=== PATIENT | male | born 1960 | race Caucasian/White ===

== ENCOUNTER → 2018-09-14 | Outpatient (CLI) | payer OTHER ==
[~2018-09-14] MED LIST: GADOBUTROL 10 ML VIAL IVP ONE
== END ==
LOC: FIMAGING 07:48
PROVIDERS: ATTEND Specialist
DX: R97.20 Elevated prostate specific antigen [PSA] (principal); N40.2 Nodular prostate without lower urinary tract symptoms
CPT/HCPCS: A9585

== ENCOUNTER 2019-01-07 07:38 | Inpatient (IN) | payer OTHER ==
--- NOTE | 2019-01-06 17:28 | GHP ---
[f rep st] PREOP HISTORY AND PHYSICAL ADMISSION DIAGNOSIS: Prostate cancer. HISTORY OF PRESENT ILLNESS: This is a 59-year-old gentleman who has had a diagnosis of prostate cancer made on 11/26/2018, had a Vesta score 9 prostate cancer. He had a PI-RADS 4 on MRI and a PSA with a 6.6 value and decipher on the specimen was evaluated. His prostate by ultrasound at the time of the biopsy revealed a prostate volume of 16.9 cubic centimeters, PSA density of 0.39. On review of the ultrasound, he had an abnormality noted in the anterior part of the prostate. He had an MRI of the prostate after the biopsy and the MRI revealed an abnormality in the left mid aspect of the prostate and in the right apical part of the prostate. The MRI report said that he had a PI-RAD 4 high red 4 area, 2 moderately suspicious nodules in the right peripheral zone involving the mid gland and apex. No evidence of extraprostatic extension, lymphadenopathy or bony lesions noted. He had a 3rd lesion in the left mid peripheral zone which has suggestion of focal prostatitis. Then on the MRI, he had a prostate volume of 30 g. He is aware of the options of therapy and I have outlined that he most likely will need to undergo surgery followed with adjuvant radiation with possible androgen deprivation therapy. He is well- informed. He has counseled with Radiologic Oncology, and who seems to be supportive of that plan. PAST MEDICAL HISTORY: Diverticulitis, elevated PSA, and prostate cancer. PAST SURGICAL HISTORY: Transrectal ultrasound with biopsy, sigmoid colon surgery for diverticulitis. MEDICATIONS: Levaquin in the past, One-A-Day multivitamin (male), tamsulosin and vitamin D. ALLERGIES: None. FAMILY HISTORY: Noncontributory. SOCIAL HISTORY: He has bcyr-er-gdtloqdl alcohol consumption. Former smoker. REVIEW OF SYSTEMS: Negative cardiac, respiratory, GI and endocrine. PHYSICAL EXAMINATION: VITAL SIGNS: Stable. CHEST: Clear. HEART: Regular rate and rhythm. ABDOMEN: Normal. No organomegaly, rebound or guarding. EXTREMITIES: Lower extremities are normal. : Prostate has consistency of hardness. ASSESSMENT AND PLAN: At the present time, he is admitted for a radical prostatectomy and bilateral pelvic lymphadenectomy robotically. It should be said he has had previous diverticulitis with partial colectomy and we have outlined that this may be somewhat complicating in trying to do the robotic procedure and if such we would convert to an open procedure. He appears to be well informed and was admitted for the above procedure. /[id number]/MODL MTDD
[2019-01-07] MEDS ORDERED: ceFAZolin 2 GM/DEXTROSE 100 ML IV ONE (07:39)
--- NOTE | 2019-01-07 07:40 | PDHPUP ---
History & Physical Update H&P update statement: This history and physical update is based on an assessment of the patient which was completed after admission or registration (within 24 hours), but prior to the surgery/procedure. H&P update: H&P reviewed & patient examined, no change in patient's condition since H&P completed
[2019-01-07] MEDS ORDERED: LIDOCAINE 1% 2 ML INJ ID PRN (07:50)
[2019-01-07] MEDS ORDERED: LR 1,000 ML IV ONE (07:50)
[2019-01-07] MEDS ORDERED: BUPIVACAINE 0.5% 30 ML SDV ONE (09:29)
[2019-01-07] MEDS ORDERED: MIDAZOLAM 2 MG/2 ML VIAL IVP ONE (10:07)
--- NOTE | 2019-01-07 10:07 | PDANEPAE ---
ANE History of Present Illness here for robotic radical prostate with LN ANE Past Medical History - Cardiovascular History Hx Hypertension: No Hx Arrhythmias: No Hx Chest Pain: No Hx Coronary Artery / Peripheral Vascular Disease: No Hx CHF / Valvular Disease: No Hx Palpitations: No - Pulmonary History Hx COPD: No Hx Asthma/Reactive Airway Disease: No Hx Recent Upper Respiratory Infection: No Hx Oxygen in Use at Home: No Hx Sleep Apnea: No Sleep Apnea Screening Result - Last Documented: Negative - Neurologic History Hx Cerebrovascular Accident: No Hx Seizures: No Hx Dementia: No - Endocrine History Hx Diabetes: No - Renal History Hx Renal Disorders: No - Liver History Hx Hepatic Disorders: No - Neurological & Psychiatric Hx Hx Neurological and Psychiatric Disorders: No - Cancer History Hx Cancer: Yes Cancer History Comment: new dx - Congenital Disorder History Hx Congenital Disorders: No - GI History Hx Gastrointestinal Disorders: Yes Gastrointestinal History Comment: diverticulitis - Other Health History Other Health History: none - Chronic Pain History Chronic Pain: No - Surgical History Prior Surgeries: none in last 5 yrs. partial colectomy 10yrs ago ANE Review of Systems Review of systems is: negative Review of Systems: - Exercise capacity Exercise capacity: >=4 METS METS (RN): 4 METS ANE Patient History - Allergies Allergies/Adverse Reactions: No Known Allergies Allergy (Verified 01/07/19 07:53) - Home Medications Home medications: home medication list seen and reviewed Home Medications: Cholecalciferol Vit D3 [Vitamin D3 (*)] 5,000 units PO DAILY 12/23/18 [Last Taken 12/28/18] Herbals/Supplements -Info Only 1 ea PO DAILY 12/23/18 [Last Taken 12/28/18] Multivitamins [Multivitamin (*)] 1 each PO DAILY 12/23/18 [Last Taken 12/28/18] Altus-3 Fatty Acids [Fish Oil 1000 mg (*)] 1,000 mg PO DAILY 12/23/18 [Last Taken 12/28/18] Tamsulosin HCl [Flomax 0.4 MG (*)] 0.4 mg PO DAILY 12/23/18 [Last Taken 01/06/19 ] - NPO status NPO Status: no food or drink >8 hours NPO Since - Liquids (Date): 01/06/19 NPO Since - Liquids (Time): 22:00 NPO Since - Solids (Date): 01/06/19 NPO Since - Solids (Time): 17:00 - Smoking Hx Smoking Status: Former smoker - Family Anes Hx Family Hx Anesthesia Complications: none ANE Labs/Vital Signs - Vital Signs Vital Signs: reviewed preoperatively; see RN documention for details Blood Pressure: 133/81 Heart Rate: 88 Respiratory Rate: 16 O2 Sat (%): 97 Height: 171.45 cm Weight: 78.471 kg ANE Physical Exam - Airway Neck exam: FROM Mallampati Score: Class 1 Mouth exam: normal dental/mouth exam - Pulmonary Pulmonary: no respiratory distress - Cardiovascular Cardiovascular: regular rate and rhythym - ASA Status ASA Status: II ANE Anesthesia Plan Anesthesia Plan: general endotracheal anesthesia
[2019-01-07] MEDS ORDERED: MIDAZOLAM 2 MG/2 ML VIAL ONE (10:09)
[2019-01-07] MEDS ORDERED: fentaNYL 250 MCG/5 ML INJ ONE (10:10)
[2019-01-07] MEDS ORDERED: PROPOFOL/EMULSION 500 MG/50 ML BOTTLE IV ONE (10:11)
[2019-01-07] MEDS ORDERED: ROCURONIUM 100 MG/10 ML VIAL ONE (10:11)
[2019-01-07] MEDS ORDERED: DEXAMETHASONE 4 MG/ML VIAL IVP PRN (11:02)
[2019-01-07] MEDS ORDERED: LR 500 ML IV PRN (11:02)
[2019-01-07] MEDS ORDERED: NS 500 ML IV PRN (11:02)
[2019-01-07] MEDS ORDERED: ONDANSETRON 4 MG/2 ML VIAL IVP PRN ×2 (11:02→13:10)
[2019-01-07] MEDS ORDERED: ALBUTEROL 3 ML DEYVIAL IH PRN (11:02)
[2019-01-07] MEDS ORDERED: NALOXONE HCL 0.4 MG/ML INJ IVP PRN ×2 (11:02→13:10)
[2019-01-07] MEDS ORDERED: PROMETHAZINE HCL 25 MG/ML INJ IVP PRN (11:02)
[2019-01-07] MEDS ORDERED: THROMBIN(HUM PLAS)/FIBRINOG/CA 5 ML VIAL TP ONE (12:15)
[2019-01-07] MEDS ORDERED: DEXAMETHASONE 4 MG/ML VIAL ONE (12:40)
[2019-01-07] MEDS ORDERED: ONDANSETRON 4 MG/2 ML VIAL ONE (12:40)
[2019-01-07] MEDS ORDERED: NEOSTIGMINE METHYLSULFATE 5 MG/5 ML SYR ONE (12:42)
[2019-01-07] MEDS ORDERED: GLYCOPYRROLATE 0.2 MG/1 ML VIAL ONE ×2 (12:42)
[2019-01-07] MEDS ORDERED: MEPERIDINE 25 MG/0.5 ML AMP ONE (13:08)
[2019-01-07] MEDS ORDERED: oxyCODONE IR 5 MG TAB PO PRN (13:10)
[2019-01-07] MEDS ORDERED: ACETAMINOPHEN 325 MG TAB PO PRN (13:10)
[2019-01-07] MEDS ORDERED: ZOLPIDEM TARTRATE 5 MG TAB PO PRN (13:10)
--- NOTE | 2019-01-07 13:10 | POSTOPPROG ---
Post Op Note Date of Operation: 01/07/19 (dictated) Surgeon: Srikanth Gonzalez Bogger Operator: Debra Anesthesiologist: Fidel Anesthesia: GET(General Endotracheal) Pre-op Diagnosis: prostate cancer Procedure: RA-RRP and PLND Inf/Abcess present in the surg proc area at time of surgery?: No EBL: 50-100 Drains: Azael Gilman, Other (matthew) Specimen(s): sent
[2019-01-07] MEDS ORDERED: fentaNYL 100 MCG/2 ML INJ ONE (13:14)
[2019-01-07] MEDS: fentaNYL 100 MCG/2 ML INJ IVP PRN ×3 (13:15→13:32)
[2019-01-07] MEDS ORDERED: HYDROmorphONE/DILAUDID 2 MG/ML INJ ONE (13:35)
[2019-01-07] MEDS: HYDROmorphONE/DILAUDID 2 MG/ML INJ IVP PRN ×7 (13:37→15:06)
[2019-01-07] MEDS ORDERED: MEPERIDINE 25 MG/0.5 ML AMP IVP ONE (14:00)
--- NOTE | 2019-01-07 14:38 | PDMN ---
Medical Necessity Medical necessity: [facility] [place] 1 day INPT only OP: RA-RRP and PLND -- AUTH# [id number] APPROVED FOR CPT 29177, [id number] DONE INPT LOS 1 DAY
--- NOTE | 2019-01-07 15:02 | POSTANESTH ---
Post Anesthetic Evaluation Cardiovascular Status: Normal, Stable Respiratory Status: Normal, Stable Level of Consciousness/Mental Status: Can Participate in Eval Pain Control: Adequate, Prn Tx Ordered Nausea/Vomiting Control: Adequate, Prn Tx Ordered Complications Possibly Related to Anesthesia: None Noted
[2019-01-07] MEDS: D5W 1/2 NS W/ 20 KCl/L 1,000 ML IV SCH (16:39)
[2019-01-07] MEDS: HYDROmorphONE/DILAUDID 6 MG/30 ML PCA IV PRN (16:40)
--- NOTE | 2019-01-07 18:07 | GOP ---
[f rep st] OPERATIVE REPORT DATE OF OPERATION: 01/07/2019 SURGEON: Srikanth Gonzalez MD FIREARMS EXPERT: Dana Richardson CFA ANESTHESIA: General anesthesia. ANESTHESIOLOGIST: Apollo Parra MD PREOPERATIVE DIAGNOSIS: Prostate cancer. POSTOPERATIVE DIAGNOSIS: Prostate cancer. PROCEDURE PERFORMED: Robotic assisted radical retropubic prostatectomy and pelvic bilateral pelvic l ymphadenectomy. FINDINGS: SPECIMENS: Sent. ESTIMATED BLOOD LOSS: Less than 100 mL. DESCRIPTION OF PROCEDURE: After undergoing general anesthesia, being prepped and draped in normal st erile fashion, a Veress needle was placed supraumbilically and abdominal insufflation to 15 mmHg pres sure of carbon dioxide, and then inspection after placing the midline camera port revealed some adhes ions from his prior surgery, and then I under vision placed remaining ports. There were four 8 mm po rts and one 12 mm special event assistant port. Then, the robot was docked, and at that point, I took down the adhesions from prior surgery intraabdo minally and was able to identify the vas deferens that coursed over the iliac vessels on both the rig ht and left sides, and we did peritoneotomy on that and followed those down into the pelvis to where they went into the prostate. The bladder was dissected off the anterior part of the seminal vesicles and the ampulla, vas deferens, and posteriorly, the rectum was dissected free from that area and dev eloped a plane between the rectum and prostate, with care not to make any enterotomy of the bowel. T he vasa were electrocauterized for hemostasis. The seminal vesicles dissected out and Hem-o-ivy's we re placed along the vessels to the seminal vesicles, and then at that point, dropped the b ladder down in a standard fashion going across the obliterated umbilical arteries and the urachus. H emostasis was noted. Endopelvic fascia was identified in the right and left sides and incised and dissected that out to wh ere I was as the base of the prostate and towards the apical area. The deep dorsal vein complex was ligated with two #0 Vicryl sutures and then transected the bladder neck in attempt to make sure there was no tumor or prostate at that bladder neck area. I could see a delineated fat plane between base of prostate and bladder, and then opened the anterior bladder neck and then the posterior bladder ne ck and dissected off and identified the space behind the bladder and brought the seminal vesicle and vas deferens anteriorly, and each the right and left sides pedicles were handled with Hem- o-loks. Hemostasis via cauterization and neurovascular bundles appeared to be intact with the dissec tion. There was no appearance of gross prostatic tissue remaining laterally. We then focused the attention to the apex, which was taken down sharply, transected through the apica l urethra and there was no prostatic adenoma or prostatic tissue identified at the urethral side. Th en, hemostasis was noted, decreased the pressure, and had no significant bleeding, and then used a Qu ill suture to do the urethrovesical anastomosis running and bridged with the Chapman catheter and irrig ated, was watertight, and then bilateral pelvic lymphadenectomy was performed using a dissection roger in of the external iliac vein to its bifurcation, and then at the obturator nerve, both on the right and left sides were identified and that lymph node packet was excised. There was no gross abnormalit ies noted on the lymph nodes. They were sent separately. Specimen sent separately, and then, a Jon son-Gilman drain was placed the space of Retzius. He tolerated the procedure well and then at that point, undocked the robot after placing the drain in place. Evicel was placed at the anastomosis, and the specimen was brought through the camera port s ite, which was extended and closed with 0 Vicryl and a fascial closure device closed the special event assistant po rt site, and then, intradermal Monocryl was used to close the skin edges. Dermabond placed. He tole rated the procedure well. STAFF: Ese Shin, Brea Boucher, and Román Corral. COMPLICATIONS: None. He will be admitted postoperatively. I will give his a call on her phone so she could return to the hospital an hour after recovery room. /[id number]/MODL
[2019-01-08 05:09] LABS: PLATELET COUNT 231 10^3/uL (150-400)
--- NOTE | 2019-01-08 06:59 | SOAPPROG ---
SOAP Progress Note Assessment/Plan: Assessment: Prostate cancer Acute POD #1, doing well, DC planning for AM Friday Plan: cont care, dc in AM 01/08/19 13:14 Subjective: doing well yet no flatus and not feeling like DC today Objective: Vital Signs Temp Pulse Resp BP Pulse Ox 36.8 C 82 14 110/71 96 01/08/19 06:03 01/08/19 06:03 01/08/19 06:03 01/08/19 06:03 01/08/19 06:03 Laboratory Results 01/08/19 04:25 01/08/19 04:25 01/07/19 01/08/19 01/09/19 05:59 05:59 05:59 Intake Total 3350 Output Total 2275 Balance 1075 Physical Exam - Physical Exam General Appearance: alert Respiratory: No respiratory distress Cardiac/Chest: regular rate, rhythm Abdomen: soft Back: No CVA tenderness Extremities: No calf tenderness, No Vic's sign Neuro/Psych: alert, oriented x 3 ICD10 Worksheet Patient Problems: Problems Problem Status Onset Prostate cancer Acute - ICD10 Problem Qualifiers (1) Prostate cancer
--- NOTE | 2019-01-08 10:52 | ASMTCMCOM ---
CM Note CM Note Notes: Chart Review for Discharge Planning: Patient is a 59 year old male with recent diagnosis (11/26/18) of prostate cancer status post radical prostatectomy and bilateral pelvic lymphadenectomy. Per chart, patient is currently employed as ID Animator, [employer] listed as . CM to follow. Discharge planning: likely home independent. Date Signed: 01/08/2019 10:51 AM Electronically Signed By:Lacey Navarro
[2019-01-08] MEDS: HYDROmorphONE/DILAUDID 6 MG/30 ML PCA IV PRN (13:35)
[2019-01-08] MEDS: D5W 1/2 NS W/ 20 KCl/L 1,000 ML IV SCH (15:22)
[2019-01-08] MEDS ORDERED: chlorproMAZINE HCL 50 MG in NS 50 ML IV ONE (16:09)
[2019-01-08] MEDS: SOLIFENACIN SUCCINATE 5 MG TAB PO SCH (17:42)
[2019-01-09 09:04] VITALS: BP 125/74
--- NOTE | 2019-01-09 09:11 | SOAPPROG ---
SOAP Progress Note Assessment/Plan: Assessment: Prostate cancer Acute POD #2, doing well, DC planning for AM Friday Plan: cont care, dc home 01/09/19 10:02 Subjective: doing well, flatus and ambulating Objective: Vital Signs Temp Pulse Resp BP Pulse Ox 36.8 C 105 H 16 125/74 H 95 01/09/19 09:04 01/09/19 09:04 01/09/19 09:04 01/09/19 09:04 01/09/19 09:04 Laboratory Results 01/08/19 04:25 01/08/19 04:25 01/08/19 01/09/19 01/10/19 05:59 05:59 05:59 Intake Total 3350 3050 Output Total 2275 3440 Balance 1075 -390 Physical Exam - Physical Exam General Appearance: alert Respiratory: No respiratory distress Cardiac/Chest: regular rate, rhythm Abdomen: soft Back: No CVA tenderness Extremities: No calf tenderness, No Vic's sign Neuro/Psych: alert, oriented x 3 ICD10 Worksheet Patient Problems: Problems Problem Status Onset Prostate cancer Acute - ICD10 Problem Qualifiers (1) Prostate cancer
[2019-01-09] MEDS: SOLIFENACIN SUCCINATE 5 MG TAB PO SCH (10:12)
--- NOTE | 2019-01-09 10:13 | ASDISCHSUM ---
Discharge Information Plan Status:Home with No Needs Medically Cleared to Leave: Discharge Date: CM D/C Disposition:Home, Routine, Self-Care ADT D/C Disposition:Home, Routine, Self-Care Projected Discharge Date: Transportation at D/C:Friend Discharge Delay Reason: Follow-Up Date: Discharge Slot: Final Diagnosis: Placement Information Patient Contact Information Contact Name:PASHA Relationship: Address:[address] City:[place] Phone: State/Zip Code:[place] [address] Email: Financial Information Financial Class:HMO and PPO Plans Primary Plan Desc:[facility] Primary Plan Number:[id number] Secondary Plan Desc: Secondary Plan Number: Assessment Information LACE LACE Length of stay for Answers: 2 days current admission Acuity / Level of Answers: Yes Care: Did the patient have an inpatient admission? Comorbidities - select Answers: Any tumor (including all that apply lymphoma or leukemia) Other Notes: Diverticulitis # of Emergency department Answers: 0 visits in the last 6 months Score: 8 Date Signed: 01/09/2019 10:12 AM Electronically Signed By:Ruchi Ray [facility] CM Progress Note CM Note CM Note Notes: Chart Review for Discharge Planning: Patient is a 59 year old male with recent diagnosis (11/26/18) of prostate cancer status post radical prostatectomy and bilateral pelvic lymphadenectomy. Per chart, patient is currently employed as ID Multimedia Coordinator, [employer]ine [employer] listed as . CM to follow. Discharge planning: likely home independent. Date Signed: 01/08/2019 10:51 AM Electronically Signed By:Lacey Navarro Intervention Information
[2019-01-09] MEDS ORDERED: SOLIFENACIN SUCCINATE 5 MG TAB PO SCH (10:15)
--- NOTE | 2019-01-12 15:48 | GDS ---
[f rep st] DISCHARGE SUMMARY ADMISSION DIAGNOSIS: Prostate cancer. DISCHARGE DIAGNOSIS: Prostate cancer. PROCEDURE DURING HOSPITALIZATION: Radical prostatectomy robotically assisted. HOSPITAL COURSE: Gentleman was an a.m. admission, had the above procedure performed. Discharged yaneli e postop day 2. Pathology pending at the time of discharge. He will follow up with me in 14 days fo r catheter removal. /[id number]/MODL
== END 2019-01-09 12:47 | disposition home or self-care (01) | DRG 708 ==
LOC: F3N 07:38 → F1N 09:59
PROVIDERS: ADMIT Specialist; ATTEND Specialist
PROC: 8E0W4CZ Robotic Assisted Procedure of Trunk Region, Percutaneous Endoscopic Approach (ICD-10-PCS; principal; 2019-01-07 09:15)
PROC: 0VT04ZZ Resection of Prostate, Percutaneous Endoscopic Approach (ICD-10-PCS; principal; 2019-01-07 09:15)
PROC: 07TC4ZZ Resection of Pelvis Lymphatic, Percutaneous Endoscopic Approach (ICD-10-PCS; principal; 2019-01-07 09:15)
DX: C61 Malignant neoplasm of prostate (principal)
CPT/HCPCS: J0690; J1100; J1170; J2175; J2250; J2405; J2704; J2710; J3010; J3230

== ENCOUNTER → 2019-01-18 | Outpatient (CLI) | payer OTHER ==
[~2019-01-18] MED LIST changes: -GADOBUTROL 10 ML VIAL IVP ONE; +IOPAMIDOL (ISOVUE-300) 100 ML BTL ONE; +IOTHALAMATE MEG (CYSTO-CONRAY II) 250 ML VIAL BLADIN ONE
== END ==
LOC: FIMAGING 13:02
PROVIDERS: ATTEND Specialist
DX: C61 Malignant neoplasm of prostate (principal); Z90.79 Acquired absence of other genital organ(s)
CPT/HCPCS: Q9961; Q9967